=== PATIENT | female | born 1965 | race African-American/Black ===

== ENCOUNTER 2024-03-26 07:33 | Emergency (ER) | payer OTHER ==
[~2024-03-26] VITALS: Ht 170.2 cm; Wt 97.0 kg
[2024-03-26 07:58] VITALS: TEMP 36.8; O2SAT 99
[2024-03-26] MEDS ORDERED: NAPR220C61 MT (09:15)
[2024-03-26 09:50] VITALS: O2SAT 99
[2024-03-26 09:52] VITALS: BP 130/76; PULSE 97; RESP 18
[2024-03-26] MEDS: IBUPROFEN 600MG TABLET PO ONE (09:52)
== END 2024-03-26 10:02 | disposition home or self-care (01) ==
LOC: ER 07:33
DX: M79.672 Pain in left foot (principal); I10 Essential (primary) hypertension
CPT/HCPCS: 73610; 73630; 99284